=== PATIENT | male | born 1950 | race Hispanic/Latino ===

== ENCOUNTER 2018-11-02 05:34 | Observation (INO) | payer MEDICARE ==
[2018-11-01 10:14] LABS: BASOPHILS # (AUTO) 0.1 (0.0-0.1); BASOPHILS % 0.9 % (0.0-1.0); EOSINOPHILS # (AUTO) 0.2 (0.0-0.4); HEMATOCRIT 37.6 % (38.2-49.6); HEMOGLOBIN 12.9 g/dL (14.0-18.0); LYMPHOCYTES # (AUTO) 1.8 (1.0-3.2); LYMPHOCYTES % 23.7 % (18.0-39.1); MEAN CORPUSCULAR HEMOGLOBIN 28.5 pg (28-32); MEAN CORPUSCULAR HGB CONC 34.3 g/dL (31-35); MEAN CORPUSCULAR VOLUME 83.2 fL (81-99); MONOCYTES # (AUTO) 0.7 (0.2-0.8); MONOCYTES % 9.8 % (4.4-11.3); NEUTROPHILS # (AUTO) 4.8 (2.1-6.9); NEUTROPHILS % 63.3 % (38.7-80.0); PLATELET COUNT 212 x10e3/uL (140-360); RED BLOOD COUNT 4.52 x10e6/uL (4.3-5.7); RED CELL DISTRIBUTION WIDTH 12.6 % (11.7-14.4)
[2018-11-01 10:25] LABS: INR 0.92; PROTHROMBIN TIME 12.8 seconds (11.9-14.5)
[2018-11-01 10:26] LABS: PARTIAL THROMBOPLASTIN TIME 28.8 seconds (23.8-35.5)
[2018-11-01 10:32] LABS: ANION GAP 13.4 mmol/L (8-16); BLOOD UREA NITROGEN 20 mg/dL (7-26); BUN/CREATININE RATIO 21 (6-25); CALCIUM 9.9 mg/dL (8.4-10.2); CARBON DIOXIDE 25 mmol/L (22-29); CHLORIDE 101 mmol/L (98-107); CREATININE, SERUM 0.97 mg/dL (0.72-1.25); EST GLOMERULAR FILTRATION RATE > 60 ML/MIN (60-); GLUCOSE 133 mg/dL (74-118); POTASSIUM 4.4 mmol/L (3.5-5.1); SODIUM 135 mmol/L (136-145)
--- NOTE | 2018-11-01 11:28 | Diagnostic Imaging Report ---
EXAM: CHEST 2 VIEWS DATE: 11/01/2018 9:37 AM INDICATION: Cervical spondylolysis, preoperative evaluation COMPARISON: None FINDINGS: The trachea is midline. The lungs are symmetrically expanded without evidence for focal consolidation, pneumothorax, or significant pleural effusion. The cardiomediastinal silhouette is within normal limits. No acute osseous abnormalities identified. The surrounding soft tissues are unremarkable. IMPRESSION: No acute cardiopulmonary process identified. Signed by: Dr. Jorge Fontanez MD on 11/01/2018 11:24 AM
[~2018-11-02] VITALS: Ht 162.6 cm; Wt 83.5 kg
[~2018-11-02 05:34] MED LIST: ASPIRIN81 MG PO; ATORVASTATIN CA10 MG PO; LOSARTAN POTASS25 MG PO; METFORMIN HCL500 MG PO
--- OUTSIDE RECORDS SUMMARY | 2018-11-02 05:38 | XMS REPORT ---
Author [facility] Address Unknown Phone Unavailable Care Team Providers Care Family Assessment Worker Name Role Phone CARLYLE ESTRELLA Unavailable Unavailable Problems This patient has no known problems. Allergies, Adverse Reactions, Alerts This patient has no known allergies or adverse reactions. Medications This patient has no known medications. Results Test Description Test Time Test Comments Text Results Atomic Results Result Comments CHEST 2 VIEWS 2018-11-01 11:23:00 [place] [address] Patient Name: RONDA NEWTON MR #: [id number] : 1950 Age/Sex: 68/M Req #: [id number] Adm Physician: Ordered by: CARLYLE ESTRELLA MD Report #: [id number] Location: OR Room/Bed: Procedure: [id number] DX/CHEST 2 VIEWS Exam Date: Exam Time: REPORT STATUS: Signed EXAM: CHEST 2 VIEWS DATE: 11/01/2018 9:37 AM INDICATION: Cervical spondylolysis, preoperative evaluation COMPARISON: None FINDINGS: The trachea is midline. The lungs are symmetrically expanded without evidence for focal consolidation, pneumothorax, or significant pleural effusion. The cardiomediastinal silhouette is within normal limits. No acute osseous abnormalities identified. The surrounding soft tissues are unremarkable. IMPRESSION: No acute cardiopulmonary process identified. Signed by: Dr. Jorge Fontanez MD on 11/01/2018 11:24 AM Dictated By: JORGE FONTANEZ MD [id number] Transcribed By: ELIANA on 11/01/18 1124 COPY TO: CARLYLE ESTRELLA MD
[2018-11-02] MEDS ORDERED: CEFAZOLIN SOD 1 GM/NS 50ML 100 ML IV ONE (06:41)
[2018-11-02] MEDS ORDERED: THROMBIN FOR SOLN 5,000 UNIT VIAL ONE (06:53)
[2018-11-02] MEDS ORDERED: BACITRACIN 50,000 UNIT VIAL ONE (06:53)
[2018-11-02] MEDS ORDERED: BUPIVACAINE 0.5%/EPI 30 ML SDV INJ ONE (06:53)
[2018-11-02] MEDS ORDERED: IBUPROFEN 800MG/ 250ML 250 ML IV ONE (07:35)
[2018-11-02] MEDS ORDERED: ACETAMINOPHEN 1000 MG/100 ML 100 ML IV ONE (07:35)
[2018-11-02] MEDS ORDERED: LIDOCAINE HCL (LTA) 4 ML SOLN ONE (07:35)
[2018-11-02] MEDS ORDERED: OXYCODONE/ACETAMINOPHEN 5-325 1 EACH TABLET PO PRN (10:00)
[2018-11-02] MEDS ORDERED: ONDANSETRON HCL INJ 2MG/ML 2ML 2 MG/ML VIAL IV PRN (10:00)
[2018-11-02] MEDS ORDERED: CARISOPRODOL 350 MG TAB PO PRN (10:00)
[2018-11-02] MEDS ORDERED: HYDROMORPHONE 2MG/ML 2 MG/ML ML IV PRN (10:00)
[2018-11-02] MEDS ORDERED: ACETAMINOPHEN 325 MG TAB PO PRN (10:00)
[2018-11-02] MEDS ORDERED: PROMETHAZINE HCL (IM) 25 MG/ML VIAL IM PRN (10:00)
[2018-11-02] MEDS ORDERED: ZOLPIDEM TARTRATE 5 MG TAB PO PRN (10:00)
[2018-11-02] MEDS ORDERED: MAGNESIUM/ALUMINUM/SIMETHICONE 30 ML UDC PO PRN (10:00)
[2018-11-02] MEDS ORDERED: MORPHINE SULFATE INJ 10 MG/ML IM PRN (12:15)
[2018-11-02] MEDS: LACTATED RINGER'S 1,000 ML IV SCH ×2 (13:16→18:07)
[2018-11-02] MEDS: CEFAZOLIN SOD 1 GM/NS 50ML 50 ML IV SCH ×2 (13:34→22:40)
[2018-11-02 13:59] VITALS: BP 188/91
[2018-11-02 15:03] VITALS: BP 173/86
--- NOTE | 2018-11-02 16:06 | Operative Report ---
DATE OF PROCEDURE: 11/02/2018 SURGEON: Bi Elena MD PREOPERATIVE DIAGNOSES: C3-C4 and C4-C5 spondylosis with spinal cord compression and myelopathy, M50.11. POSTOPERATIVE DIAGNOSES: C3-C4 and C4-C5 spondylosis with spinal cord compression and myelopathy, M50.11. PROCEDURE: 1. C3-C4 anterior cervical diskectomy and microsurgical osteophyte resection and allograft fusion, 63609. 2. C4-C5 anterior cervical diskectomy and microsurgical osteophyte resection and allograft fusion, 43584. 3. Preparation of tricortical iliac crest allograft, 92439. 4. C3-C4 and C4-C5 anterior cervical plating with Synthes CSLP plate, 61368. ANESTHESIA: General. INDICATIONS: The patient is a 68-year-old man, who presents with C3-C4 and C4-C5 spondylosis with severe spinal stenosis and myelopathy and myelomalacia. He was taken to the operating room for two-level anterior cervical decompression and fusion. DESCRIPTION OF PROCEDURE: After induction of general anesthesia, the patient was placed on the operating table in supine position. The right side of the neck was prepped and draped in sterile fashion. The fluoroscopic C-arm was positioned in cross-table lateral orientation. A transverse incision was created on the right side of neck, superimposed on the C4 vertebral body as determined by fluoroscopy. The platysma was divided in line with the incision. A subplatysmal dissection was carried out and avascular plane and dissection was developed medial to sternocleidomastoid muscle, and was followed medial to the carotid sheath to the anterior border of the cervical spine. The deep cervical fascia was opened. The esophagus was retracted to the left. The attachments of longus colli muscles to the anterolateral aspects of vertebral bodies of C3, C4, and C5 were divided. The anterior longitudinal ligament was resected. [place] posts were inserted into C3 and C5 and the [place] distractor was used to distract both disk spaces simultaneously. The anterior annuli of the disks were incised with a #11 blade and the contents of both disks were thoroughly evacuated with angled curettes and pituitary rongeurs. The posterior osteophytes were meticulously drilled with a 2 mm cutting bur on a high-speed drill until they were completely removed. The posterior annulus of the disk, herniated disk material, and the posterior longitudinal ligament were resected layer by layer until the dura was fully exposed and decompressed. The medial aspects of the uncinate processes were resected bilaterally to further expose any compressed origins of the corresponding nerve roots. After satisfactory decompression had been achieved, the endplates were prepared for fusion. Two pieces of tricortical iliac crest allograft were cut to size and shape of the disk spaces, and were inserted into disk spaces under distraction and fluoroscopic guidance. The distraction was released and distraction posts were removed. A Synthes CSLP variable type anterior cervical plate was selected and affixed to the vertebral bodies of C3, C4, and C5 with 3 pairs of 14 x 4.35 mm screws. All screws were locked. The wound was copiously irrigated with bacitracin solution. Hemostasis was secured. Retractor was removed. The platysma was closed with 3-0 Vicryl sutures. The skin was closed with 4-0 Monocryl sutures in subcuticular fashion. Steri-Strips and dressing were applied. The patient was awakened, extubated, and taken to Postanesthesia Care Unit in stable condition. No intraoperative complications were encountered. Estimated blood loss was 20 ml. Bi Elena MD PP/RAFAELA /[id number]
[2018-11-02 16:59] VITALS: BP 179/84
--- NOTE | 2018-11-02 17:30 | NUR ---
TOLERATING PO, CALL LIGHT WITHIN REACH
[2018-11-02] MEDS ORDERED: LIDOCAINE HCL 2% LOCAL INJ 5 ML SDV VIAL INJ ONE (17:47)
[2018-11-02] MEDS ORDERED: PROPOFOL IV EMULSION 10 MG/ML 20 ML VIAL ONE (17:47)
[2018-11-02] MEDS ORDERED: LIDOCAINE HCL 2% JELLY 5 ML TUBE ONE (17:47)
[2018-11-02] MEDS ORDERED: SEVOFLURANE INHAL SOLN 250 ML PEN BTL ONE (17:47)
[2018-11-02] MEDS ORDERED: DEXAMETHASONE SOD PHOS INJ 4 MG/ML VIAL ONE (17:47)
[2018-11-02] MEDS ORDERED: ONDANSETRON HCL INJ 2MG/ML 2ML 2 MG/ML VIAL ONE (17:47)
--- NOTE | 2018-11-02 18:27 | NUR ---
AMBULATING IN HALLWAY, STEADY GAIT, PCT AT SIDE
[2018-11-02] MEDS ORDERED: FENTANYL CITRATE/PF 100MCG/2 ML INJ ONE (18:39)
[2018-11-02] MEDS ORDERED: MIDAZOLAM HCL 2 MG/2 ML VIAL ONE (18:39)
--- NOTE | 2018-11-02 19:08 | NUR ---
WALKING ROUNDS PERFORMED, RECEIVED PT SITTING IN RECLINER, PT IS AAOX3, RR EVEN AND NON-LABORED, ON ROOM AIR. NO S/SX OF DISTRESS NOTED. DRESSING TO ANTERIOR NECK NOTED TO BE CDI, HARD COLLAR TO NECK IN PLACE. LEFT PT IN RECLINER, CALL LIGHT WITHIN REACH, FAMILY AT BEDSIDE.
[2018-11-02 20:00] VITALS: BP 161/74
[2018-11-02] MEDS ORDERED: ATORVASTATIN 10 MG TAB PO SCH (21:00)
[2018-11-02 21:10] VITALS: BP 161/74
[2018-11-03] VITALS: BP 181/77
[2018-11-03] MEDS: LACTATED RINGER'S 1,000 ML IV SCH (02:27)
[2018-11-03 04:00] VITALS: BP 194/79
[2018-11-03] MEDS: CEFAZOLIN SOD 1 GM/NS 50ML 50 ML IV SCH (06:09)
--- NOTE | 2018-11-03 07:12 | NUR ---
Received patient lying in bed with eyes closed. Respiration even and unlabored without SOB. Ajit light in reach.
[2018-11-03 08:08] VITALS: BP 178/76
[2018-11-03 08:35] VITALS: BP 178/76
[2018-11-03] MEDS ORDERED: METFORMIN HCL 500 MG TAB PO SCH (09:00)
[2018-11-03] MEDS ORDERED: LOSARTAN POTASSIUM 25 MG TAB PO SCH (09:00)
[2018-11-03] MEDS ORDERED: ONDANSETRON HCL 4 MG ORAL DISINTEGRATING TAB PO PRN (09:30)
[2018-11-03] MEDS ORDERED: NORCO 7.5-3251 EACH PO (10:04)
--- NOTE | 2018-11-03 10:30 | NUR ---
Patient is to be discharge to home today. Discharge instructions given with [place]. [id number]. Family members at bedside. verbalized understanding. PIV to right hand discontinued, catheter tip intact, no bleeding noted.
--- NOTE | 2018-11-03 10:46 | NUR ---
Patient is transported via wheelchair to private auto for discharge. Respiration even and unlabored without SOB. Belongings are with patient and family members.
== END 2018-11-03 10:46 | disposition home or self-care (01) ==
LOC: OR 05:34 → PACU V 09:44 → MED/SURG 11:47
PROVIDERS: ADMIT Neurological Surgery; ATTEND Neurological Surgery
DX: M50.11 Cervical disc disorder with radiculopathy, high cervical region (principal); I10 Essential (primary) hypertension; E11.9 Type 2 diabetes mellitus without complications; E78.00 Pure hypercholesterolemia, unspecified
CPT/HCPCS: 20930; 22551; 22552; 22840; 22845; 36415 ×3; 71046; 77003; 80048; 82948 ×2; 85025; 85610; 85730; 86850; 86900; 88304; 93005; C1763; G0378 ×2; J0131; J0690 ×2; J1100; J1170; J2001 ×2; J2250; J2405; J2704; J3010; J7121; C1713

== ENCOUNTER → 2018-11-30 | Outpatient (CLI) | payer MEDICARE ==
[~2018-11-30] MED LIST changes: +NORCO 7.5-3251 EACH PO
--- NOTE | 2018-11-30 11:55 | Diagnostic Imaging Report ---
Cervical spine, 5 views. History: Postop. Discussion: The cervical spine is visualized on the lateral view from C1 through the top of T1 with the additional swimmer's view. Anterior plate and screws are present from C3 through C5 in anatomic position. There is no evidence of subluxation with flexion and extension views. There is no evidence of fracture, subluxation, or posterior splaying. Degenerative changes are noted in the lower cervical spine. The prevertebral soft tissues are within normal limits. IMPRESSION: Status post C3-C5 anterior cervical fusion. No evidence of instability on flexion and extension views. Signed by: Loyd Ramos on 11/30/2018 11:52 AM
== END ==
LOC: RAD 10:28
PROVIDERS: ATTEND Neurological Surgery
DX: M50.20 Other cervical disc displacement, unspecified cervical region (principal); M43.22 Fusion of spine, cervical region
CPT/HCPCS: 72050